=== PATIENT | male | born 1965 | race African-American/Black ===

== ENCOUNTER 2017-01-05 11:05 | Day surgery (SDC) | payer OTHER ==
[2017-01-02 09:57] VITALS: BMI 24.7
[2017-01-05] MEDS ORDERED: CEFAZOLIN/Water 2 GM/20 ML SYRINGE ONE (12:15)
[2017-01-05] MEDS ORDERED: Fentanyl 100 MCG/2 ML VIAL ONE ×2 (12:19→15:51)
[2017-01-05] MEDS ORDERED: Midazolam HCl 2 mg/2 ml Vial ONE (12:19)
[2017-01-05] MEDS ORDERED: Lidocaine 2% Jelly 5 ML TUBE ONE (12:33)
[2017-01-05] MEDS ORDERED: Promethazine HCl 25 MG/ML VIAL IM PRN (12:48)
[2017-01-05] MEDS ORDERED: Ondansetron HCl/PF 4 MG/2 ML Vial IVP PRN (12:48)
[2017-01-05] MEDS ORDERED: Ropivacaine 0.2% 550 ML 550 ML NERVE BLCK SCH (12:48)
[2017-01-05] MEDS ORDERED: traMADol HCl 50 MG TAB PO PRN ×2 (12:48)
[2017-01-05] MEDS ORDERED: Zolpidem Tartrate 5 MG TAB PO PRN (12:48)
[2017-01-05] MEDS ORDERED: HYDROcodone/Acetaminophen 10/325 mg Tablet PO PRN ×2 (12:48)
[2017-01-05] MEDS ORDERED: Fentanyl 100 MCG/2 ML VIAL IV PRN (12:48)
[2017-01-05] MEDS ORDERED: Ondansetron HCl/PF 4 MG/2 ML Vial ONE (13:40)
[2017-01-05] MEDS ORDERED: Propofol 200 MG/20 ML VIAL ONE (13:40)
[2017-01-05] MEDS ORDERED: Glycopyrrolate 0.2 MG/ML 5 ML SYRINGE ONE (13:40)
[2017-01-05] MEDS ORDERED: Ketorolac Tromethamine 30 MG/ML VIAL ONE (15:51)
--- NOTE | 2017-01-05 16:26 | OP ---
OPERATION: Left shoulder subacromial decompression with distal clavicle excision. 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 POSTOPERATIVE DIAGNOSIS: Left shoulder subacromial impingement with acromioclavicular joint arthrit is. ESTIMATED BLOOD LOSS: 150 mL. SURGEON: Joesph Gutiérrez M.D. ANESTHESIA: General. INDICATIONS: Mr. Gama is a 51-year-old male who has injured his shoulder. He has been indicated fo r subacromial decompression with distal clavicle excision after he has failed to improve with conser vative treatment including injection. MRI has shown an intact rotator cuff, although he does have a possible biceps tendinitis. DESCRIPTION OF PROCEDURE: Mr. Gama was identified in the preoperative holding area. His correct ex tremity was marked. He was carried to the operating room. He was positioned supine. General anest hesia was induced. A multidisciplinary timeout was performed. The left lower extremity was prepped and draped in sterile fashion. We began the procedure with diagnostic arthroscopy. We made a small incision over the posterior ally ulder. We inserted our arthroscope. We then evaluated the intraarticular structures. The biceps t endon was intact. There was no evidence of fraying or irritation. We gently debrided fraying of th e labrum. The rotator cuff was intact. We then moved to the subacromial space. At this point, we performed a thorough subacromial decompression with a high speed shaver as well as cautery device. We exposed the undersurface of the acromion thoroughly. We debrided the bursal surface of the rotat or cuff as well. There was no tearing of the rotator cuff. We then used a high speed valeria to level of the acromion using a cutting block technique from anterior to posterior. We took away significa nt bone spurring. Next, we moved more medially. We exposed the distal clavicle. There was also si gnificant bone spurring and impingement around the distal clavicle. We again used our valeria to resec t 8 mm of distal clavicle bone. We did this from the undersurface using the arthroscope. We were n ot able to fully remove the most superior aspect of the bones. So, at this point, we converted to a small open incision. We dissected down and finished the resection with a rongeur. We thoroughly i rrigated with copious lavage. We then closed with 0 Vicryl suture, 2-0 Vicryl suture and nylon was used. The patient was taken to the recovery room in good condition without complication.
[2017-01-05] MEDS ORDERED: Ketorolac Tromethamine 30 MG/ML VIAL IVP SCH (18:00)
== END 2017-01-05 17:15 | disposition home or self-care (01) ==
LOC: SDC 11:05
PROVIDERS: ATTEND Orthopaedic Surgery
PROC: 0PBB0ZZ Excision of Left Clavicle, Open Approach (ICD-10-PCS; principal; 2017-01-05)
PROC: 0RNK4ZZ Release Left Shoulder Joint, Percutaneous Endoscopic Approach (ICD-10-PCS; principal; 2017-01-05)
DX: M75.42 Impingement syndrome of left shoulder (principal); M19.012 Primary osteoarthritis, left shoulder; I11.9 Hypertensive heart disease without heart failure; E78.5 Hyperlipidemia, unspecified; F17.200 Nicotine dependence, unspecified, uncomplicated; Z79.899 Other long term (current) drug therapy; Z98.890 Other specified postprocedural states
CPT/HCPCS: 93005; 93010; A4306; J1885; J2250; J2405; J2704; J2795; J3010

== ENCOUNTER 2025-01-03 18:36 | Observation (INO) | payer OTHER ==
[2025-01-03 19:24] VITALS: BMI 23.8
[2025-01-03] MEDS ORDERED: Ondansetron PF 4 MG/2 ML Vial IVP PRN (19:34)
[2025-01-03] MEDS ORDERED: Acetaminophen 325 MG TAB PO PRN (19:34)
[2025-01-03] MEDS ORDERED: Nitroglycerin 0.4 MG TAB (25 Tab Bottle) SL PRN (19:34)
[2025-01-03] MEDS ORDERED: Dextrose 50% Abboject 50 ML SYRINGE SLOW IVP PRN (20:09)
[2025-01-03] MEDS ORDERED: Glucagon 1 MG/ML KIT IM PRN (20:09)
[2025-01-03] MEDS: Rosuvastatin 20 MG TAB PO SCH (20:31)
[2025-01-03] MEDS ORDERED: Nitroglycerin 2% Ointment 1 INCH/1 GM Packet TOP SCH (23:59)
[2025-01-04 04:58] LABS: #Basophils 0.03 10x3/uL (0.0-0.2); #Eosinophils 0.37 10x3/uL (0.0-0.7); #Monocytes 0.40 10x3/uL (0.11-0.59); #Neutrophils 3.51 10x3/uL (1.40-6.50); %Basophils 0.6 % (0.0-1.0); %Eosinophils 7.1 % (0.0-10.0); %Lymphocytes 17.6 % (21.0-51.0); %Monocytes 7.6 % (0.0-10.0); %Neutrophils 66.9 % (42.0-75.0); Hematocrit 34.9 % (42.0-52.0); Hemoglobin 11.2 g/dL (14.0-18.0); Mean Corpuscular Hemoglobin 28.5 pg (27.0-31.0); Mean Corpuscular Volume 88.8 fL (78.0-98.0); Platelet Count 170 10x3/uL (130-400); Red Blood Cell (RBC) Count 3.93 mill/uL (4.70-6.10); White Blood Cell (WBC) Count 5.24 10x3/uL (4.8-10.8)
[2025-01-04 05:14] LABS: Anion Gap 12 mmol/L (10-20); BUN (Urea Nitrogen) 23 mg/dL (8.4-25.7); Calc. Creatinine Clearance 68 mL/min (70-130); Calcium 8.6 mg/dL (7.8-10.44); Carbon Dioxide 27 mmol/L (22-29); Cardiac Risk 3.6 (Less than 4.5); Chloride 107 mmol/L (98-107); Cholesterol 187 mg/dl (< 200 Desired); Glucose 271 mg/dL (70-105); HDL Cholesterol 52 mg/dL (>60 Neg Risk); LDL Cholesterol, Calculated 98 mg/dL; Potassium 3.8 mmol/L (3.5-5.1); Sodium 142 mmol/L (136-145); Triglycerides 185 mg/dL (Less than 150)
[2025-01-04] MEDS: Enoxaparin 40 MG (0.4 mL) SYRINGE SC SCH (10:39)
[2025-01-04] MEDS: Losartan 25 MG TAB PO SCH (10:39)
[2025-01-04 15:10] VITALS: BP 135/83; TEMP 97.7
== END 2025-01-04 16:42 | disposition home or self-care (01) ==
LOC: OBS 18:36
PROVIDERS: ADMIT Family Medicine; ATTEND Hospitalist
DX: R07.89 Other chest pain (principal); I10 Essential (primary) hypertension; N17.9 Acute kidney failure, unspecified; E11.9 Type 2 diabetes mellitus without complications; E78.5 Hyperlipidemia, unspecified; F17.290 Nicotine dependence, other tobacco product, uncomplicated; Z79.899 Other long term (current) drug therapy
CPT/HCPCS: 36415; 36416; 78452; 80048; 80061; 83036; 85025; 93017; 94760; A9502; J1650; J2785; J7030